=== PATIENT | female | born 1980 | race American Indian/Alaskan Native ===

== ENCOUNTER 2016-12-10 14:25 | Outpatient (CLI) | payer SELFPAY ==
[2016-12-10 15:44] VITALS: BP 117/81
--- NOTE | 2016-12-11 08:09 | Ultrasound Report ---
ULTRASOUND BIOPHYSICAL PROFILE: History: well being, limited care Technique: Transabdominal ultrasound with Doppler interrogation. 2 - breathing movements 2 - movements 2 - posture and tone 2 - Qualitative amniotic fluid volume 8 - TOTAL SCORE OF POSSIBLE 8 Heart Rate (bpm) 131
--- NOTE | 2016-12-11 08:18 | Ultrasound Report ---
OB ULTRASOUND History: Limited care, well being. Technique: Transabdominal ultrasound with Doppler interrogation. Gestation: Single Position: Breech Placenta: Anterior Placental Grade: 1 Heart Rate: 144 BPM BPD: 9.1 cm = 37 w 0 d HC: 33.4 cm = 38 w 1 d AC: 33.3 cm = 37 w 1 d FL: 6.8 cm = 34 w 6 d HC/AC Ratio: 1.0 Cephalic Index: 79.3 Estimated Weight: 3008 grams Clinical age = 34 w 5 d EDC: 01/16/17 US Gest. Age = 36 w 6 d EDC: 01/01/17
== END 2016-12-10 17:06 | disposition home or self-care (01) ==
LOC: TRG 14:25
PROVIDERS: ATTEND Obstetrics & Gynecology
DX: O09.523 Supervision of elderly multigravida, third trimester (principal); O32.1XX0 Maternal care for breech presentation, not applicable or unspecified; Z3A.36 36 weeks gestation of pregnancy
CPT/HCPCS: 76816; 76819

== ENCOUNTER 2017-01-02 14:14 | Outpatient (CLI) | payer SELFPAY ==
[2017-01-02] MEDS ORDERED: LACTATED RINGERS 1,000 ML IV ONE (16:42)
[2017-01-02 18:11] VITALS: BP 117/70
--- NOTE | 2017-01-03 11:01 | Ultrasound Report ---
ULTRASOUND OB LIMITED History: Vaginal leaking, rupture of membranes Technique: Transabdominal ultrasound with Doppler interrogation. Gestation: Single Position: Cephalic Amniotic Fluid: Normal MITA = 19.9 cm Heart Rate: 143 BPM
== END 2017-01-02 18:35 | disposition home or self-care (01) ==
LOC: TRG 14:14
PROVIDERS: ATTEND Obstetrics & Gynecology Gynecology
DX: O09.523 Supervision of elderly multigravida, third trimester (principal); Z3A.38 38 weeks gestation of pregnancy
CPT/HCPCS: 59025; 76815; 96360; J7120

== ENCOUNTER 2017-01-14 22:28 | Inpatient (IN) | payer OTHER ==
[2017-01-14] MEDS ORDERED: LACTATED RINGERS 1,000 ML ONE (22:58)
[2017-01-14] MEDS: LACTATED RINGERS 1,000 ML IV SCH (23:10)
[2017-01-15] MEDS ORDERED: BICITRA PO ONE (00:05)
[2017-01-15] MEDS ORDERED: PEPCID IV ONE (00:05)
[2017-01-15] MEDS ORDERED: REGLAN IV ONE (00:05)
[2017-01-15] MEDS ORDERED: EMLA TP PRN (00:05)
--- NOTE | 2017-01-15 00:11 | History and Physical Report ---
History of Present Illness Date of examination: 01/15/17 Date of admission: 01/14/17 23:26 Chief complaint: Painful contractions History of present illness: 36-year-old at 39 weeks who presents in active labor, she is a [facility] patient with late presentation at 34 weeks. Essential history is patient with initial care in [place] transferred at 34 weeks. Initial ultrasound from the anterior shoulder lying placenta dated 10/22/2016, she is also a primary in 2005 for arrest disorder. Ultrasound on 12/10/2016 shows Cephalic presentation no abnormal placentation. 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 denies: smoking, alcohol abuse, prescription drug abuse, IV drug use - Obstetrical History Expected Date of Delivery: 01/16/17 Actual Gestation: 39 Week(s) 6 Day(s) : 3 Para: 1 Medications and Allergies Allergies Allergy/AdvReac Type Severity Reaction Status Date / Time ampicillin Allergy Severe Itching Verified 01/15/17 00:14 Review of Systems Constitutional: no fever, no chills Eyes: no diplopia, no photophobia Cardiovascular: high blood pressure (increased diastolic blood pressure), no chest pain, no orthopnea, no lightheadedness, no shortness of breath Respiratory: no shortness of breath, no dyspnea on exertion Gastrointestinal: abdominal pain (Painful contractions), no nausea, no vomiting Genitourinary: no vaginal bleeding, no vaginal discharge, no leakage of fluid - Vital Signs Vital signs: Vital Signs Pulse BP 87 135/91 01/14/17 22:36 01/14/17 22:36 Temp Pulse Resp BP Pulse Ox 98.1 F 82 18 135/94 01/14/17 22:59 01/14/17 22:52 01/14/17 22:59 01/14/17 22:52 - Physical Exam Cardiovascular: Regular rate, Normal S1, Normal S2 Lungs: Positive: Clear to auscultation, Normal air movement Abdomen: Positive: normal appearance, soft. Negative: distention, tenderness, guarding, rigidity Genitourinary (Female): Positive: normal external genitalia Uterus: Positive: enlarged (EFW ~ 3600) Adnexa: both: normal Extremities: Positive: normal - Obstetrical FHR: category 1 Cervical Dilatation: 1 (Per RN) Results All other labs normal. Assessment and Plan A: 36-year-old at 39+6 weeks w/ prior C/S presents in active labor -Cat 1 tracing -Scheduled for repeat this a.m. at 11 P: -Obtain routine labs -She has been consented -Proceed to the OR once available - Patient Problems (1) 39 weeks gestation of Current Visit: No Status: Acute (2) Active labor at term Current Visit: No Status: Acute (3) Previous delivery affecting Current Visit: No Status: Acute (4) with care elsewhere in second trimester Current Visit: Yes Status: Acute (5) with care elsewhere in third trimester Current Visit: Yes Status: Acute
[2017-01-15] MEDS: LACTATED RINGERS 1,000 ML IV SCH (00:20)
[2017-01-15 00:33] LABS: Basophils % (Auto) 0.3 % (0.0-1.8); Eosinophils % (Auto) 1.4 % (0.0-4.3); Hemoglobin 11.2 gm/dl (10.1-14.3); Mean Corpuscular HGB Conc 31 % (30-34); Mean Corpuscular Volume 71 fl (79-97); Platelet Count 156 K/mm3 (140-440); Red Blood Count 5.08 M/mm3 (3.65-5.03); Red Cell Distribution Width 15.8 % (13.2-15.2); White Blood Count 11.1 K/mm3 (4.5-11.0)
[2017-01-15 00:34] LABS: Mean Corpuscular Hemoglobin 22 pg (28-32)
[2017-01-15 00:48] LABS: Lactate Dehydrogenase 326 units/L (91-180)
[2017-01-15] MEDS ORDERED: MORPHINE ONE (00:59)
[2017-01-15] MEDS ORDERED: ANCEF/STERILE WATER 2 GM/20 ML 2 GM/20 ML SYRINGE IV NR (01:00)
[2017-01-15] MEDS ORDERED: PITOCin/NS 20 UNIT/1000ML DRIP 20 UNITS/1,000 ML BAG IV SCH ×2 (01:00→03:00)
[2017-01-15 01:02] LABS: Albumin 0.2 g/dL (3.9-5); Alkaline Phosphatase 86 units/L (35-129); Bilirubin,Total 0.2 mg/dL (0.1-1.2); Blood Urea Nitrogen 6 mg/dL (7-17); Calcium 9.2 mg/dL (8.4-10.2); Carbon Dioxide 15 mmol/L (22-30); Chloride 102.6 mmol/L (98-107); Glucose 69 mg/dL (65-100); Sodium 136 mmol/L (137-145); Total Protein 6.9 g/dL (6.3-8.2)
[2017-01-15 01:12] LABS: Alanine Aminotransferase 17 units/L (7-56)
[2017-01-15 01:13] LABS: Anion Gap 23 mmol/L; Potassium 4.8 mmol/L (3.6-5.0)
[2017-01-15] MEDS ORDERED: VERSED ONE (01:39)
[2017-01-15] MEDS ORDERED: ZOFRAN ONE (01:40)
[2017-01-15] MEDS ORDERED: NEO SYNEPHRINE ONE (01:44)
[2017-01-15] MEDS ORDERED: TYLENOL PO PRN (02:33)
[2017-01-15] MEDS ORDERED: MYLICON PO PRN (02:33)
[2017-01-15] MEDS ORDERED: PHENERGAN PR PRN (02:33)
[2017-01-15] MEDS ORDERED: ANUCORT-HC PR PRN (02:33)
[2017-01-15] MEDS ORDERED: TUCKS PAD TP PRN (02:33)
[2017-01-15] MEDS ORDERED: LANSINOH TP PRN (02:33)
[2017-01-15] MEDS ORDERED: MILK OF MAGNESIA PO PRN (02:33)
[2017-01-15] MEDS ORDERED: ZOFRAN IV PRN (02:33)
[2017-01-15] MEDS ORDERED: SENOKOT PO PRN (02:33)
[2017-01-15] MEDS ORDERED: NARCAN 0.4 MG/1 ML IV PRN (02:33)
[2017-01-15] MEDS ORDERED: TORADOL IV PRN (02:33)
--- NOTE | 2017-01-15 02:33 | Operative Report ---
Operative Report Operative Report: DATE: 01/15/2017 PREOPERATIVE DIAGNOSIS: 36-year-old at 39+6 weeks, active labor, prior C- section, transfer from [place] POSTOP DIAGNOSIS: Same plus fibroid uterus NAME OF PROCEDURE: Repeat low transverse section with J shaped incision SURGEON: IRASEMA HERNANDEZ MD MANUSCRIPTS CURATOR: [] ANESTHESIA: Spinal EBL: 800 mL PATHOLOGY SPECIMEN: None URINE OUTPUT: 150 mL FINDINGS: Female in cephalic presentation, time of was 01:36 AM, weight was 6 lbs. 14 oz. or 3135 g, Apgars were 8 and 9, uterus was rotated with left adnexa anterior as well as distended tortuous blood vessels, left fallopian tube was adhesed to the uterine wall anteriorly, Golf ball sized pedunculated fibroid attached anteriorly to the serosa, normal right adnexa DESCRIPTION OF PROCEDURE: She was taken to the operating room where she was prepped and draped in a sterile fashion, she was placed in the dorsal supine position. Pfannenstiel incision was performed through her prior incisional scar which was carried through to underlying rectus fascia which was on the midline. The fascial incision was extended laterally with use of Claire scissors , the anterior leaf was then grasped with Kochers forceps elevated dissected sharply and bluntly off the underlying rectus in a similar fashion inferior leaf was grasped elevated dissected sharply and bluntly off the underlying rectus. The rectus was in the midline, good visualization of bladder was noted. A bladder blade was placed in the patient's pelvic cavity. After noting above anatomy, a J shaped hysterotomy incision was then performed in the lower segment away from the adnexa with thick meconium-stained fluid noted. in cephalic presentation was delivered in the usual manner; cord was clamped and cut was handed over to waiting nursery staff. The placenta was then delivered manually intact, the uterus was exteriorized cleared of all clots and debris. Hysterotomy incision was then closed in a running locked fashion with 0 Vicryl on a CTX; using the same suture was imbricate the initial layer. Interrupted [id number] stitches were used to obtain hemostasis. Uterus was then returned to the patient's pelvic cavity; peritoneal edges were grasped with hemostats and Karen's elevated copiously irrigation was used to clear the gutters of all clots and debris. Tercel hemostatic agent was then applied to the hysterotomy incision as a means to prevent future bleeding, Interceed was then applied into the pelvic cavity as a means to prevent future adhesions. The peritoneal layer was then closed in a running fashion with 3-0 Vicryl and the rectus was reapproximated with a single [id number]-[id number] stitch. The fascia was closed in a running fashion with 0 Vicryl and tied in the opposite side. The subcutaneous layer was irrigated and then reapproximated with interrupted [id number] stitches. The skin was closed in a subcuticular manner with 4-0 Vicryl. She tolerated the procedure well lap and instrument counts were correct 2 she did receive 2 g of Ancef prior to incision she is transferred to PACU in stable condition thank you.
[2017-01-15] MEDS ORDERED: SODIUM CHLORIDE FLUSH SYRINGE 10 ML IV PRN (03:00)
[2017-01-15] MEDS ORDERED: D5LR 1,000 ML IV SCH (03:00)
[2017-01-15] MEDS ORDERED: BOOSTRIX IM ONE (06:00)
[2017-01-15] MEDS: FEOSOL PO SCH (11:04)
[2017-01-15] MEDS: PERCOCET 5/325 PO PRN ×2 (11:04→19:27)
[2017-01-15] MEDS: PRENATAL VITAMIN PO SCH (11:04)
[2017-01-15 18:47] LABS: Hematocrit 30.7 % (30.3-42.9); Hemoglobin 9.5 gm/dl (10.1-14.3)
[2017-01-15] MEDS: MOTRIN PO PRN (23:56)
[2017-01-16] MEDS ORDERED: M-M-R II VACCINE SUB-Q ONE (02:34)
[2017-01-16] MEDS: PERCOCET 5/325 PO PRN ×3 (05:26→20:27)
[2017-01-16] MEDS ORDERED: BOOSTRIX IM ONE (06:00)
--- NOTE | 2017-01-16 09:08 | Progress Note ---
Subjective Date of service: 01/16/17 Interval history: 1st POD after Patient is in the bed, comfortable. Pain is well controlled with pain meds. Ambulated well. No residual neurological deficit. No anesthesia complication Objective - Constitutional Vitals: Vital Signs - 12hr 01/16/17 00:00 Temperature 98.4 F Pulse Rate [ 94 H Left From Monitor] Respiratory 18 Rate Blood Pressure 96/59 [Left Arm] - Labs CBC & Chem 7: 01/15/17 14:33 01/14/17 23:55 Labs: Abnormal lab results 01/15/17 Range/Units 14:33 Hgb 9.5 L (10.1-14.3) gm/dl
--- NOTE | 2017-01-16 10:08 | Progress Note ---
Assessment and Plan - Patient Problems (1) Status post repeat low transverse section Onset Date: 01/16/17 Current Visit: Yes Status: Acute Plan to address problem: A: S/P Repeat C Section - POD #1 Doing well P: Continue RPOC Anticipate discharge in 24-48hrs Subjective - Subjective Date of service: 01/16/17 Principal diagnosis: s/p Repeat C Section - POD #1 Interval history: Pt is feeling well without complaints. Bleeding improved. Tolerating a reg diet without nausea or vomiting. Patient reports: appetite normal, voiding normally, pain well controlled, flatus , ambulating normally : doing well, nursing well Objective - Vital Signs Latest vital signs: Vital Signs Temp Pulse Resp BP 01/16/17 00:00 98.4 F 94 H 18 96/59 01/15/17 20:35 98.6 F 75 18 126/73 01/15/17 16:00 99.3 F 85 16 118/71 01/15/17 12:00 98.4 F 72 16 98/60 Intake and Output 01/15/17 01/16/17 01/16/17 22:59 06:59 14:59 Intake Total 480 Output Total 700 700 Balance -220 -700 Intake: Oral 480 Output: Urine 700 700 Void 700 700 Other: Total, Intake Amount 480 Total, Output Amount 400 700 # Voids Void 1 - Exam Breasts: Present: deferred Cardiovascular: Present: Regular rate Lungs: Present: Clear to auscultation Abdomen: Present: normal appearance, soft Uterus: Present: normal, firm, fundal height below umbilicus Extremities: Present: normal Incision: Present: normal, dry, intact, dressed - Labs Labs: Abnormal lab results 01/15/17 Range/Units 14:33 Hgb 9.5 L (10.1-14.3) gm/dl Laboratory Tests 01/14/17 01/14/17 01/14/17 23:55 23:55 23:55 WBC 11.1 H RBC 5.08 H Hgb 11.2 Hct 36.0 MCV 71 L MCH 22 L MCHC 31 RDW 15.8 H Plt Count 156 Lymph % (Auto) 27.7 [place] % (Auto) 6.4 Eos % (Auto) 1.4 Baso % (Auto) 0.3 Lymph # 3.1 [place] # 0.7 Eos # 0.2 Baso # 0.0 Seg Neutrophils % 64.2 Seg Neutrophils # 7.1 Sodium 136 L Potassium 4.8 Chloride 102.6 Carbon Dioxide 15 L Anion Gap 23 BUN 6 L Creatinine 0.6 L Estimated GFR > 60 BUN/Creatinine Ratio 10.00 Glucose 69 Uric Acid 5.4 Calcium 9.2 Total Bilirubin 0.2 AST 34 ALT 17 Alkaline Phosphatase 86 Lactate Dehydrogenase Total Protein 6.9 Albumin 0.2 L Albumin/Globulin Ratio 0.0 Blood Type Antibody Screen 01/14/17 01/15/17 01/15/17 23:55 00:00 14:33 WBC RBC Hgb 9.5 L Hct 30.7 MCV MCH MCHC RDW Plt Count Lymph % (Auto) [place] % (Auto) Eos % (Auto) Baso % (Auto) Lymph # [place] # Eos # Baso # Seg Neutrophils % Seg Neutrophils # Sodium Potassium Chloride Carbon Dioxide Anion Gap BUN Creatinine Estimated GFR BUN/Creatinine Ratio Glucose Uric Acid Calcium Total Bilirubin AST 33 ALT Alkaline Phosphatase Lactate Dehydrogenase 326 H Total Protein Albumin Albumin/Globulin Ratio Blood Type O POSITIVE Antibody Screen Negative
[2017-01-16] MEDS: FEOSOL PO SCH (10:24)
[2017-01-16] MEDS: PRENATAL VITAMIN PO SCH (10:24)
[2017-01-16] MEDS: MOTRIN PO PRN (10:38)
[2017-01-17] MEDS: PERCOCET 5/325 PO PRN ×2 (02:17→11:59)
[2017-01-17] MEDS: MOTRIN PO PRN ×2 (02:18→11:57)
[2017-01-17] MEDS: FEOSOL PO SCH (09:31)
[2017-01-17] MEDS: PRENATAL VITAMIN PO SCH (09:31)
--- NOTE | 2017-01-17 11:33 | Progress Note ---
Assessment and Plan - Patient Problems (1) Status post repeat low transverse section Onset Date: 01/16/17 Current Visit: Yes Status: Acute Plan to address problem: A: S/P Repeat C Section - POD #2 Doing well P: May go home today. Subjective - Subjective Date of service: 01/17/17 Principal diagnosis: s/p Repeat C Section - POD #2 Interval history: Pt is feeling well without complaints. Bleeding improved. Tolerating a reg diet without nausea or vomiting, ambulating and voiding without difficulty. Patient reports: appetite normal, voiding normally, pain well controlled, flatus , ambulating normally : doing well, nursing well Objective - Vital Signs Latest vital signs: Vital Signs Temp Pulse Pulse Resp BP BP 01/17/17 07:36 99.2 F 92 H 22 110/78 01/17/17 02:18 18 01/17/17 02:17 18 01/17/17 01:45 119/69 01/17/17 00:30 98.6 F 70 16 01/16/17 20:27 18 01/16/17 15:58 98.6 F 95 H 20 104/62 Intake and Output 01/16/17 01/17/17 01/17/17 22:59 06:59 14:59 Intake Total 360 300 240 Balance 360 300 240 Intake: Oral 360 240 Intake, Free Water 300 Other: Total, Intake Amount 360 Voiding Method Toilet # Voids 1 Void 1 - Exam Breasts: Present: deferred Cardiovascular: Present: Regular rate, Other Abdomen: Present: normal appearance, soft Uterus: Present: normal, firm, fundal height below umbilicus Extremities: Present: normal Incision: Present: normal, dry, intact
--- NOTE | 2017-01-17 11:34 | Discharge Summary ---
Providers - Providers Date of Admission: 01/14/17 23:26 Date of discharge: 01/17/17 Attending physician: IRASEMA HERNANDEZ Primary care physician: IRASEMA HERNANDEZ Hospitalization Reason for admission: section, IUP at term Delivery: Procedure: section, repeat low transverse Episiotomy: none Laceration: none Incision: normal, dry, intact Other procedures: none complications: none Discharge diagnosis: IUP at term delivered [place] baby: female Hospital course: Pt is a 36-year-old BF at 39 weeks who presents in active labor, she is a [facility] patient with late presentation at 34 weeks, with initial care in [facility], transferred at 34 weeks. She had a previous C Section , and thus underwent an uncomplicated Repeat C Section. She tolerated the procedure well, and by POD #2 she was tolerating a reg diet without nausea or vomiting, ambulating and voiding without difficulty. She was therefore discharged to home on POD #2 in stable condition. Condition at discharge: Good Disposition: DISCHARGED TO HOME OR SELFCARE - Discharge Diagnoses (1) Status post repeat low transverse section Status: Resolved Plan - Discharge Medications Prescriptions: Ibuprofen [Motrin 600 MG tab] 600 mg PO Q8H PRN #30 tablet PRN Reason: Pain Multivitamin with Iron [Multivitamins with Iron] 1 each PO DAILY #30 tablet oxyCODONE /ACETAMINOPHEN [Percocet 5/325] 1 tab PO Q6HR PRN #30 tablet PRN Reason: Pain - Provider Discharge Summary Activity: routine, no sex for 6 weeks, no heavy lifting 4 weeks, no strenuous exercise Diet: routine Instructions: routine Additional instructions: [] Smoking cessation referral if applicable(refer to patient education folder for contact #) [] Refer to [facility]'s [facility] Booklet Call your doctor immediately for: * Fever > 100.5 * Heavy vaginal bleeding ( >1 pad per hour) * Severe persistent headache * Shortness of breath * Reddened, hot, painful area to leg or breast * Drainage or odor from incision. * Keep incision clean and dry at all times and follow doctor's instructions regarding bathing/showering - Follow up plan Follow up: IRASEMA HERNANDEZ MD [Primary Care Provider] - 14 Days Forms: [facility] Discharge Summary
[2017-01-17 16:34] VITALS: BP 110/76
== END 2017-01-17 16:45 | disposition home or self-care (01) | DRG 766 ==
LOC: TRG 22:28 → APU 23:26 → TRG 23:26 → OB 01-15 03:40
PROVIDERS: ADMIT Obstetrics & Gynecology Gynecology; ATTEND Obstetrics & Gynecology Gynecology
PROC: 10D00Z1 Extraction of Products of Conception, Low, Open Approach (ICD-10-PCS; principal; 2017-01-15)
PROC: 3E0234Z Introduction of Serum, Toxoid and Vaccine into Muscle, Percutaneous Approach (ICD-10-PCS; 2017-01-15)
DX: O34.211 Maternal care for low transverse scar from previous cesarean delivery (principal); O34.13 Maternal care for benign tumor of corpus uteri, third trimester; D25.9 Leiomyoma of uterus, unspecified; O09.523 Supervision of elderly multigravida, third trimester; Z3A.39 39 weeks gestation of pregnancy; Z37.0 Single live birth; Z88.1 Allergy status to other antibiotic agents; Z23 Encounter for immunization
CPT/HCPCS: 36415; 80053; 83615; 84450; 84550; 85014; 85018; 85025; 86850; 86900; 86901; 90471; 90715; 99211; A6250; G0463; J0690; J2250; J2270; J2370; J2405; J2590; J2765; J7120; J7121